=== PATIENT | female | born 1985 | race Caucasian/White ===

== ENCOUNTER 2018-06-10 13:41 | Emergency (ER) | END 2018-06-10 17:58 | disposition home or self-care (01) ==

== ENCOUNTER 2018-07-24 17:40 | Emergency (ER) | payer OTHER ==
[~2018-07-24] VITALS: Wt 58.6 kg
[~2018-07-24 17:40] MED LIST: ACET500C5 PO; METO10TA92 PO
[2018-07-24] MEDS ORDERED: SOD CHLORIDE 0.9% 2,000 ML IV STA (19:07)
[2018-07-24] MEDS ORDERED: METOCLOPRAMIDE 10 MG INJ IV ONE (19:30)
[2018-07-24] MEDS ORDERED: METO10TA92 PO (20:02)
[2018-07-24] MEDS ORDERED: POTASSIUM CHLORIDE (SR) 20 MEQ TAB PO STA (20:05)
--- NOTE | 2018-07-24 20:05 | ERD ---
ER Documentation Chief Complaint Chief Complaint NAUSEA, VOMITING, SENT PER PMD FOR EVAL, 16 WKS PG, NO VB HPI 32-year-old female presents with vomiting since early . She is approximately 16 weeks by dates. She denies any bleeding. She has intermittent crampy abdominal pain. She denies any dysuria, fevers. Vomit is nonbilious nonbloody. She is a G1 para 0. She was referred by primary doctor for evaluation for IV fluids. ROS All systems reviewed and are negative except as per history of present illness. Medications Home Meds Active Scripts Metoclopramide* (Reglan*) 10 Mg Tablet, 10 MG PO Q6 PRN for NAUSEA AND/OR VOMITING, #20 TAB Prov:JERMAIN LOCKHART MD 07/24/18 Metoclopramide* (Reglan*) 10 Mg Tablet, 10 MG PO Q6 PRN for NAUSEA AND/OR VOMITING, #10 TAB Prov:AIDEE HOWARD PA-C 06/10/18 Acetaminophen* (Tylophen*) 500 Mg Capsule, 1 CAP PO Q6H PRN for PAIN AND OR ELEVATED TEMP, #20 CAP Prov:AIDEE HOWARD PA-C 06/10/18 Allergies Allergies: Coded Allergies: No Known Allergy (Unverified , 06/10/18) PMhx/Soc Medical and Surgical Hx: pt denies Medical Hx History of Surgery: Yes (Appendectomy) Anesthesia Reaction: No Hx Alcohol Use: No Hx Substance Use: No Hx Tobacco Use: No Smoking Status: Never smoker FmHx Family History: No diabetes, No coronary disease, No other Physical Exam Vitals Vital Signs Date Temp Pulse Resp B/P (MAP) Pulse Ox O2 O2 Flow FiO2 Time Delivery Rate 07/24/18 98.0 79 16 110/55 100 17:42 (73) Physical Exam Const: No acute distress Head: Atraumatic Eyes: Normal Conjunctiva ENT: Normal External Ears, Nose and Mouth. Neck: Full range of motion. No meningismus. Resp: Clear to auscultation bilaterally Cardio: Regular rate and rhythm, no murmurs Abd: Soft, non tender, non distended. Normal bowel sounds Skin: No petechiae or rashes Back: No midline or flank tenderness Ext: No cyanosis, or edema Neur: Awake and alert Psych: Normal Mood and Affect Result Diagram: 07/24/18191907/24/181919 Results 24 hrs Laboratory Tests Test 07/24/18 19:20 07/24/18 19:21 White Blood Count 8.9 10^3/ul Red Blood Count 3.64 10^6/ul Hemoglobin 11.1 g/dl Hematocrit 32.8 % Mean Corpuscular Volume 90.1 fl Mean Corpuscular Hemoglobin 30.5 pg Mean Corpuscular Hemoglobin Concent 33.8 g/dl Red Cell Distribution Width 12.9 % Platelet Count 231 10^3/UL Mean Platelet Volume 11.0 fl Immature Granulocytes % 0.400 % Neutrophils % 66.6 % Lymphocytes % 21.8 % Monocytes % 6.8 % Eosinophils % 4.1 % Basophils % 0.3 % Nucleated Red Blood Cells % 0.0 /100WBC Immature Granulocytes # 0.040 10^3/ul Neutrophils # 5.9 10^3/ul Lymphocytes # 2.0 10^3/ul Monocytes # 0.6 10^3/ul Eosinophils # 0.4 10^3/ul Basophils # 0.0 10^3/ul Nucleated Red Blood Cells # 0.0 10^3/ul Sodium Level 141 mmol/L Potassium Level 3.2 mmol/L Chloride Level 101 mmol/L Carbon Dioxide Level 28 mmol/L Anion Gap 12 Blood Urea Nitrogen 7 mg/dl Creatinine 0.46 mg/dl Est Glomerular Filtrat Rate mL/min > 60 mL/min Glucose Level 127 mg/dl Calcium Level 9.4 mg/dl Total Bilirubin 0.5 mg/dl Direct Bilirubin 0.00 mg/dl Indirect Bilirubin 0.5 mg/dl Aspartate Amino Transf (AST/SGOT) 21 IU/L Alanine Aminotransferase (ALT/SGPT) 26 IU/L Alkaline Phosphatase 36 IU/L Total Protein 7.0 g/dl Albumin 4.1 g/dl Globulin 2.90 g/dl Albumin/Globulin Ratio 1.41 Lipase 67 U/L Urine Color YELLOW Urine Clarity SLIGHTLY CLOUDY Urine pH 6.0 Urine Specific [place] 1.025 Urine Ketones TRACE mg/dL Urine Nitrite NEGATIVE mg/dL Urine Bilirubin NEGATIVE mg/dL Urine Urobilinogen NEGATIVE mg/dL Urine Leukocyte Esterase NEGATIVE [place]/ul Urine Microscopic RBC 0 /HPF Urine Microscopic WBC 2 /HPF Urine Squamous Epithelial Cells MODERATE /HPF Urine Amorphous Crystals FEW /HPF Urine Bacteria FEW /HPF Urine Mucus MODERATE /HPF Urine Hemoglobin NEGATIVE mg/dL Urine Glucose 3+ mg/dL Urine Total Protein 1+ mg/dl Current Medications Medications Dose Sig/Juana Start Time Status Last (Trade) Ordered Route PRN Stop Time Admin Dose Reason Admin Sodium 2,000 ml @ Q2H STAT 07/24/18 07/24/18 Chloride 1,000 mls/hr IV 19:07 07/24/18 19:31 21:06 10 mg ONCE ONCE 07/24/18 DC 07/24/18 Metoclopramid IV 19:30 07/24/18 19:33 e HCl 19:31 (Reglan) Procedures/MDM CBC shows minimal anemia. Potassium is 3.2. Urine shows no significant acute abnormal findings. Patient was given 2 L normal saline IV IV, Reglan 10 mg IV. Patient had no vomiting during ER course. She had a benign abdomen on serial exam. Pelvic ultrasound shows second trimester intrauterine without appreciable acute abnormalities. Patient was given K-Dur 40 mg by mouth. She presents with signs and symptoms of hyperemesis without evidence of significant dehydration, signs of complication of , additional emergent causes of presenting complaints. Will Reglan, recommendations for frequent small meals, fluids, primary care follow-up and return precautions for pain, bleeding, new or worsening symptoms. The patient was stable with no new complaints during the ER course. Clinically, there is no current evidence to suggest meningitis, sepsis, acute abdomen, pneumonia, stroke, acute coronary syndrome, pulmonary embolism, aortic dissection or any other emergent condition appearing to require further evaluation or hospitalization. Patient counseled regarding my diagnostic impression and care plan. Prior to discharge all questions answered. Pt agrees with treatment plan and understands strict return precautions. Pt is instructed to follow up with primary care provider within 24-48 hours. Precautionary instructions provided including instructions to return to the ER if not improving or for any worsening or changing symptoms or concerns. Departure Diagnosis: Primary Impression: Nausea and vomiting Vomiting type: unspecified Vomiting Intractability: unspecified Qualified Codes: R11.2 - Nausea with vomiting, unspecified Condition: Stable Patient Instructions: Hyperemesis Gravidarum (Severe Morning Sickness) Referrals: DOCTOR,NOT ON STAFF (PCP) Additional Instructions: MAR Y ORINA NORMAL. Cheque otro vez con [place] doctor primario en el proximo dinh or regresa para mas o nueva simptomas. JERMAIN LOCKHART MD Jul 24, 2018 20:05
[2018-07-24 22:13] VITALS: BP 103/53; PULSE 67; RESP 18
== END 2018-07-24 22:14 | disposition home or self-care (01) ==
LOC: FTE 17:40
DX: O21.9 Vomiting of pregnancy, unspecified (principal); Z3A.16 16 weeks gestation of pregnancy
CPT/HCPCS: 36415; 76805; 80053; 81001; 83690; 85025; 96374; 99285; J2765; J7030

== ENCOUNTER 2019-01-09 06:00 | Inpatient (IN) | payer OTHER ==
[~2019-01-09] VITALS: Ht 157.5 cm; Wt 72.0 kg
[2019-01-09] MEDS ORDERED: CARBOPROST 250 MCG INJ IM PRN ×2 (07:30→08:30)
[2019-01-09] MEDS ORDERED: OXYTOCIN 30 UNITS/LR 500 ML IV PRN ×2 (07:30→08:30)
[2019-01-09] MEDS ORDERED: MISOPROSTOL 200 MCG TAB PR PRN ×2 (07:30→08:30)
[2019-01-09] MEDS ORDERED: METHYLERGONOVINE 0.2 MG INJ IM PRN ×2 (07:30→08:30)
[2019-01-09] MEDS ORDERED: OXYTOCIN 30 UNITS/LR 500 ML IV SCH ×4 (07:30→10:30)
[2019-01-09 08:16] VITALS: BP 109/65; PULSE 70; RESP 18
[2019-01-09 08:19] VITALS: Ht 157.5 cm; Wt 72.0 kg
[2019-01-09] MEDS ORDERED: LIDOCAINE 1% (MPF) 30 ML INJ INJ PRN (08:30)
[2019-01-09] MEDS ORDERED: IBUPROFEN 600 MG TAB PO PRN (08:30)
[2019-01-09] MEDS ORDERED: BUTORPHANOL 2 MG INJ IV PRN (08:30)
[2019-01-09] MEDS ORDERED: OXYCODONE/ASPIRIN (4.88/325) TAB PO PRN (08:30)
[2019-01-09] MEDS: LACTATED RINGER'S 1,000 ML IV SCH ×3 (08:41→22:21)
[2019-01-09] MEDS ORDERED: MISOPROSTOL 50 MCG CAPSULE PO SCH (10:45)
[2019-01-09] MEDS: LACTATED RINGER'S 1,000 ML IV PRN ×2 (17:01→17:57)
[2019-01-09] MEDS ORDERED: FENTAnyl 2MCG/ML-ROPIV 0.2% 100 ML ONE (17:48)
[2019-01-09] MEDS: OXYTOCIN 30 UNITS/LR 500 ML IV SCH (17:58)
--- NOTE | 2019-01-09 17:58 | PREAC ---
Date/Time of Note Date/Time of Note DATE: 01/09/19 TIME: 17:57 Anesthesia Eval and Record Evaluation Time Pre-Procedure Interview DATE: 01/09/19 TIME: 17:57 Age 33 Sex female NPO: 8 hrs Preoperative diagnosis Labor Pain Planned procedure Labor Epidural Past Medical History Past Medical History: Includes : : (1), Para: (0), Gestational age: (40) Surgery & Anesthesia Issues No known issue Meds Anticoagulation: No Beta Conchita within 24 hr: No Reason Beta Conchita not given: Pt. not on B-Conchita Active Scripts Metoclopramide* (Reglan*) 10 Mg Tablet, 10 MG PO Q6 PRN for NAUSEA AND/OR VOMITING, #20 TAB Prov:JERMAIN LOCKHART MD 07/24/18 Metoclopramide* (Reglan*) 10 Mg Tablet, 10 MG PO Q6 PRN for NAUSEA AND/OR VOMITING, #10 TAB Prov:AIDEE HOWARD PA-C 06/10/18 Acetaminophen* (Tylophen*) 500 Mg Capsule, 1 CAP PO Q6H PRN for PAIN AND OR ELEVATED TEMP, #20 CAP Prov:AIDEE HOWARD PA-C 06/10/18 Current Medications Lactated Ringer's 1,000 ml @ 125 mls/hr Q8H IV Last administered on 01/09/19at 12:49; Admin Dose 125 MLS/HR; Start 01/09/19 at 07:30 Butorphanol Tartrate (Stadol) 2 mg Q2H PRN IV .PAIN SCALE 6-10; Start 01/09/19 at 08:30 Lidocaine (Xylocaine 1% (Mpf)) 30 ml ONCE PRN INJ .EPISIOTOMY; Start 01/09/19 at 08:30 Oxytocin/Lactated Ringer's 500 ml @ 500 mls/hr ONCE POST IV ; Start 01/09/19 at 08:30 Oxytocin/Lactated Ringer's 500 ml @ 125 mls/hr POST IV ; Start 01/09/19 at 08:30 Ibuprofen (Motrin) 600 mg ONCE PRN PO .PAIN 1-5; Start 01/09/19 at 08:30 Oxycodone/Aspirin (Percodan) 2 tab ONCE PRN PO .PAIN 6-10; Start 01/09/19 at 08:30 Lactated Ringer's 1,000 ml @ 2,000 mls/hr Q30M PRN IV .ANESTHESIA Last administered on 01/09/19at 17:01; Admin Dose 2,000 MLS/HR; Start 01/09/19 at 08:07 Oxytocin/Lactated Ringer's 500 ml @ 0 mls/hr ONCE PRN IV .VAGINAL BLEEDING; Start 01/09/19 at 08:30 Methylergonovine Maleate (Methergine) 0.2 mg ONCE PRN IM .VAGINAL BLEEDING; Start 01/09/19 at 08:30 Carboprost Tromethamine (Hemabate) 250 mcg ONCE PRN IM .VAGINAL BLEEDING; Start 01/09/19 at 08:30 Misoprostol (Cytotec) 1,000 mcg ONCE PRN IN .VAGINAL BLEEDING; Start 01/09/19 at 08:30 Oxytocin/Lactated Ringer's 500 ml @ 0 mls/hr Q0M IV ; Start 01/09/19 at 17:00 Meds reviewed: Yes Allergies Coded Allergies: No Known Allergy (Unverified , 06/10/18) Allergies Reviewed: Yes Labs/Studies Labs Reviewed: Reviewed by anesthesiologist Result Diagram: 01/09/19 0830 Laboratory Tests 01/09/19 08:30 Blood Bank Test 01/09/19 08:30 Antibody Screen NEGATIVE Blood Type O POSITIVE Rh Immune Globulin Candidate NO test: Positive Studies: ECG (n/a), CXR (n/a) Pre-procedure Exam Last vitals Vital Signs Date Temp Pulse Resp B/P (MAP) Pulse Ox O2 O2 Flow FiO2 Time Delivery Rate 01/09/19 97.8 70 18 109/65 08:16 (80) Airway: Adequate mouth opening, Adequate thyromental dist Mallampati: Mallampati II Teeth: Normal Lung: Normal Heart: Normal ASA Physical Status ASA physical status: 2 Emergency: None Planned Anesthetic Neuraxial: Epidural Planned Pain Management Epidural Pre-operative Attestations Prior to commencing anesthesia and surgery, the patient was re-evaluated, there was verification of: *The patient's identity *The results of appropriate recent lab work and preoperative vital signs *The above evaluation not changing prior to induction *Anesthetic plan, risk benefits, alternative and complications discussed with patient/family; questions answered; patient/family understands, accepts and wishes to proceed. TITI APONTE MD 26, 2019 17:58
[2019-01-09] MEDS ORDERED: NALOXONE (0.4 MG/ML) INJ IV PRN (18:00)
[2019-01-09] MEDS: FENTAnyl 2MCG/ML-ROPIV 0.2% 100 ML BAG EPI SCH (18:35)
--- NOTE | 2019-01-09 19:37 | PAC ---
Date/Time of Note Date/Time of Note DATE: 01/09/19 TIME: 19:36 Post-Anesthesia Notes Post-Anesthesia Note Last documented vital signs Vital Signs Date Temp Pulse Resp B/P (MAP) Pulse Ox O2 O2 Flow FiO2 Time Delivery Rate 01/09/19 97.8 70 18 109/65 100 19:16 (80) Activity: WNL Respiratory function: WNL Cardiovascular function: WNL Mental status: Baseline Pain reasonably controlled: Yes Hydration appropriate: Yes Nausea/Vomiting absent: Yes TITI APONTE MD Jan 09, 2019 19:37
--- NOTE | 2019-01-09 20:25 | PREOPHP ---
DATE OF ADMISSION: 01/09/2019 HISTORY OF PRESENT ILLNESS: This is a 33-year-old lady, 1, EDC 01/09/2019 at 40 weeks , admitted to labor and delivery area for induction. She had care in my [place] office and the care was uneventful. PAST PERSONAL HISTORY: No history of diabetes, TB or asthma. ALLERGIES: NO ALLERGIES. SOCIAL HISTORY: The patient does not smoke. She does not drink. MEDICATIONS: She does not take any drugs except her iron and vitamins. GYNECOLOGIC HISTORY: She had menarche at the age of 12, every 28 days interval, 3 to 4 days duration, and moderate in amount. FAMILY HISTORY: Father has diabetes. REVIEW OF SYSTEMS: CARDIOVASCULAR: No chest pains. RESPIRATORY: No cough. GASTROINTESTINAL: No diarrhea, no vomiting. GENITOURINARY: No dysuria. PHYSICAL EXAMINATION: GENERAL: Reveals a conscious, coherent lady and in no acute distress. VITAL SIGNS: Her blood pressure 120/80, pulse rate 80 per minute, respirations 16 per minute. BREASTS: Within normal limits. HEART: Within normal limits. LUNGS: Within normal limits. UTERUS: Fundic height 37 cm. heart tones 140 per minute. PELVIC: Exam at 10:35 a.m. done by me revealed the cervix to be station -2 in cephalic presentation with the bag of water intact. EXTREMITIES: No pedal edema. ADMITTING DIAGNOSIS: A 40 weeks intrauterine . The plans of delivery were explained to the patient as to go for vaginal delivery. The risks, benefits, and alternatives to vaginal delivery at were explained. The risks of were explained as well. She had an OB ultrasound and the estimated weight is about 7 pounds 5 ounces. The patient wanted to go for and her wanted to go for a vaginal delivery. The patient was planned to have Cytotec. The patient so far, at this time of dictation, received 1 dose of Cytotec. She was having some contractions and at times, she was having tachysystole and she was evaluated by the nurse and she was 1 cm so the Cytotec was ordered not to be given anymore and to be given Pitocin augmentation. Dictated By: BEST MENDEZ/NTS Conf#: [id number] DID#: [id number] MTDD
[2019-01-10] MEDS: FENTAnyl 2MCG/ML-ROPIV 0.2% 100 ML BAG EPI SCH ×3 (00:52→14:57)
[2019-01-10] MEDS: LACTATED RINGER'S 1,000 ML IV SCH ×3 (06:03→23:30)
[2019-01-10] MEDS: OXYTOCIN 30 UNITS/LR 500 ML IV SCH (13:00)
[2019-01-10] MEDS ORDERED: ONDANSETRON 4 MG INJ IV PRN ×3 (18:30→21:30)
[2019-01-10] MEDS ORDERED: CEFAZOLIN 2 GM/50 ML (PMX) 50 ML IVPB SCH (20:30)
--- NOTE | 2019-01-10 20:30 | PREAC ---
Date/Time of Note Date/Time of Note DATE: 01/10/19 TIME: 20:29 Anesthesia Eval and Record Evaluation Time Pre-Procedure Interview DATE: 01/10/19 TIME: 20:29 Age 33 Sex female NPO: 8 hrs Preoperative diagnosis failure to progress Planned procedure c section Past Medical History Past Medical History: Includes : Gestational age: Surgery & Anesthesia Issues No known issue (40.1) Meds Anticoagulation: No Beta Conchita within 24 hr: No Reason Beta Conchita not given: Pt. not on B-Conchita Active Scripts Metoclopramide* (Reglan*) 10 Mg Tablet, 10 MG PO Q6 PRN for NAUSEA AND/OR VOMITING, #20 TAB Prov:JERMAIN LOCKHART MD 07/24/18 Metoclopramide* (Reglan*) 10 Mg Tablet, 10 MG PO Q6 PRN for NAUSEA AND/OR V OMITING, #10 TAB Prov:AIDEE HOWARD PA-C 06/10/18 Acetaminophen* (Tylophen*) 500 Mg Capsule, 1 CAP PO Q6H PRN for PAIN AND OR ELEVATED TEMP, #20 CAP Prov:AIDEE HOWARD PA-C 06/10/18 Current Medications Lactated Ringer's 1,000 ml @ 125 mls/hr Q8H IV Last administered on 01/10/19at 14:29; Admin Dose 125 MLS/HR; Start 01/09/19 at 07:30 Butorphanol Tartrate (Stadol) 2 mg Q2H PRN IV .PAIN SCALE 6-10; Start 01/09/19 at 08:30 Lidocaine (Xylocaine 1% (Mpf)) 30 ml ONCE PRN INJ .EPISIOTOMY; Start 01/09/19 at 08:30 Oxytocin/Lactated Ringer's 500 ml @ 500 mls/hr ONCE POST IV ; Start 01/09/19 at 08:30 Oxytocin/Lactated Ringer's 500 ml @ 125 mls/hr POST IV ; Start 01/09/19 at 08:30 Ibuprofen (Motrin) 600 mg ONCE PRN PO .PAIN 1-5; Start 01/09/19 at 08:30 Oxycodone/Aspirin (Percodan) 2 tab ONCE PRN PO .PAIN 6-10; Start 01/09/19 at 08:30 Lactated Ringer's 1,000 ml @ 2,000 mls/hr Q30M PRN IV .ANESTHESIA Last administered on 01/09/19at 17:57; Admin Dose 2,000 MLS/HR; Start 01/09/19 at 08:07 Oxytocin/Lactated Ringer's 500 ml @ 0 mls/hr ONCE PRN IV .VAGINAL BLEEDING; Start 01/09/19 at 08:30 Methylergonovine Maleate (Methergine) 0.2 mg ONCE PRN IM .VAGINAL BLEEDING; Start 01/09/19 at 08:30 Carboprost Tromethamine (Hemabate) 250 mcg ONCE PRN IM .VAGINAL BLEEDING; Start 01/09/19 at 08:30 Misoprostol (Cytotec) 1,000 mcg ONCE PRN CO .VAGINAL BLEEDING; Start 01/09/19 at 08:30 Oxytocin/Lactated Ringer's 500 ml @ 0 mls/hr Q0M IV Last administered on 01/10/19at 13:00; Admin Dose 2 MLS/HR; Start 01/09/19 at 17:00 Naloxone HCl (Narcan) 0.2 mg Q2M PRN IV .RESP RATE; Start 01/09/19 at 18:00 Fentanyl/ Ropivacaine 100 ml EPIDURAL (PCEA) EPI Last administered on 01/10/19at 14:57; Admin Dose 100 ML; Start 01/09/19 at 18:00 Ondansetron HCl (Zofran Inj) 4 mg Q6H PRN IV NAUSEA AND/OR VOMITING Last administered on 01/10/19at 18:38; Admin Dose 4 MG; Start 01/10/19 at 18:30 Cefazolin Sodium/ Dextrose 50 ml @ 100 mls/hr ONCE IVPB ; Start 01/10/19 at 20:30 Meds reviewed: Yes Allergies Coded Allergies: No Known Allergy (Unverified , 06/10/18) Allergies Reviewed: Yes Labs/Studies Labs Reviewed: Reviewed by anesthesiologist Result Diagram: 01/09/19829 test: Positive Studies: ECG (n/a), CXR (n/a) Pre-procedure Exam Last vitals Vital Signs Date Temp Pulse Resp B/P (MAP) Pulse Ox O2 O2 Flow FiO2 Time Delivery Rate 01/09/19 97.8 70 18 109/65 08:16 (80) Airway: Adequate mouth opening Mallampati: Mallampati I Teeth: Normal Lung: Normal Heart: Normal ASA Physical Status ASA physical status: 2 Emergency: None Planned Anesthetic Neuraxial: Epidural Planned Pain Management Parenteral pain med Pre-operative Attestations Prior to commencing anesthesia and surgery, the patient was re-evaluated, there was verification of: *The patient's identity *The results of appropriate recent lab work and preoperative vital signs *The above evaluation not changing prior to induction *Anesthetic plan, risk benefits, alternative and complications discussed with patient/family; questions answered; patient/family understands, accepts and wishes to proceed. ANDIE SHIN MD Jan 10, 2019 20:30
[2019-01-10] MEDS ORDERED: KETOROLAC 30 MG INJ ONE (20:33)
[2019-01-10] MEDS ORDERED: ONDANSETRON 4 MG INJ ONE (20:33)
[2019-01-10] MEDS ORDERED: METOCLOPRAMIDE 10 MG INJ ONE (20:33)
[2019-01-10] MEDS ORDERED: morphine SULFATE/PF (10 MG/10 ML) INJ ONE (20:33)
[2019-01-10] MEDS ORDERED: LIDOCAINE 1.5%/EPI MPF (SDV) 30 ML VIAL ONE (20:33)
[2019-01-10] MEDS ORDERED: METHYLERGONOVINE 0.2 MG INJ ONE (20:50)
[2019-01-10] MEDS ORDERED: FENTAnyl 50 MCG/ML VIAL ONE (20:54)
[2019-01-10] MEDS ORDERED: OXYTOCIN 30 UNITS/LR 500 ML IV ONE (21:22)
[2019-01-10] MEDS ORDERED: morphine 2 MG INJ IV PRN ×6 (21:30)
[2019-01-10] MEDS ORDERED: DIPHENHYDRAMINE 50 MG INJ IV PRN ×2 (21:30)
[2019-01-10] MEDS ORDERED: NALOXONE (0.4 MG/ML) INJ IV PRN (21:30)
--- NOTE | 2019-01-10 21:47 | HP ---
DATE OF ADMISSION: 01/09/2019 ADDENDUM HISTORY OF PRESENT ILLNESS: See dictated history and physical. ADMITTING DIAGNOSIS: A 40 weeks intrauterine in early labor. PROGRESS OF LABOR: This patient received Cytotec x1, and then with a Cytotec, she was having some ta chysystole, and because of that, she was only given 1 dose of Cytotec and then she was started on Pit ocin and then the Pitocin was started at 1740 p.m. on 01/09/2019 and then she was having moderate con tractions, and around 8:30 in the morning, she had artificial ruptured bag of water and she was 3 cm dilated and done by Dr. Scott and she was on Pitocin from 7:34 p.m. on January 09, and and restarted at 12:46 p.m. She had, as mentioned, artificial rupture of membranes, by Dr. Scott at 8:40 a.m. o n January 10. She was continued on Pitocin augmentation at 7:40 p.m. on January 10. I reevaluated the patient. She is having good contractions since is still 3 cm dilated and 100% effaced and station s till -2, and because of failure to progress, the patient and the was informed that she should go for for suspected macrosomia as well as failure to progress. The procedures were expla ined to the patient and to her and both understood everything totally. The risks, benefits, and alternatives were discussed with them as well. Dictated By: BEST MENDEZ/YONATAN Conf#: [id number] DID#: [id number]
[2019-01-10] MEDS ORDERED: OXYTOCIN 30 UNITS/LR 500 ML IV SCH (21:49)
[2019-01-10] MEDS ORDERED: LACTATED RINGER'S 1,000 ML IV SCH (21:49)
--- NOTE | 2019-01-10 21:49 | OPPN ---
Date/Time of Note Date/Time of Note DATE: 01/10/19 TIME: 21:45 Operative Report Planned Procedure Procedure date Jan 10, 2019 Procedure(s) PRIMARY CSECTION Performed by see signature line Transport Medic: LUIS ENRIQUE DAVIS MD 2nd Transport Medic none Pre-procedure diagnosis 40 1/7 IUP FAILURE TO PROGRESS [id number] Anesthesia Type: [id number] epidural Post-Procedure Post-procedure diagnosis 40 1/7 IUP FAILURE TO PROGRESS Findings Live Baby GIRL, Apgars 9and 9, weight 6LBS 10OZ Estimated Blood Loss: 600 - 700 mls Specimen(s) none Grafts/Implant(s) PLACENTA Complication(s) none BEST BROWN MD Jan 10, 2019 21:49
[2019-01-10] MEDS ORDERED: OXYTOCIN 30 UNITS/LR 500 ML IV PRN (22:00)
[2019-01-10] MEDS ORDERED: METHYLERGONOVINE 0.2 MG TAB PO PRN (22:00)
[2019-01-10] MEDS ORDERED: METHYLERGONOVINE 0.2 MG INJ IM PRN (22:00)
[2019-01-10] MEDS ORDERED: LANOLIN HPA 1 PKT TOP PRN (22:00)
[2019-01-10] MEDS ORDERED: MISOPROSTOL 200 MCG TAB PR PRN (22:00)
[2019-01-10] MEDS ORDERED: CARBOPROST 250 MCG INJ IM PRN (22:00)
[2019-01-11] VITALS (7 sets, daily range): BP systolic 97–130; BP diastolic 55–72; PULSE 77–90; RESP 18–19
[2019-01-11] MEDS: SENNA/DOCUSATE NA (8.6MG/50MG) TAB PO SCH ×2 (08:50→21:21)
--- NOTE | 2019-01-11 09:36 | PAC ---
Date/Time of Note Date/Time of Note DATE: 01/11/19 TIME: 09:36 Post-Anesthesia Notes Post-Anesthesia Note Last documented vital signs Vital Signs Date Temp Pulse Resp B/P (MAP) Pulse Ox O2 O2 Flow FiO2 Time Delivery Rate 01/11/19 98.8 83 18 113/57 97 Room Air 04:30 (75) Activity: WNL Respiratory function: WNL Cardiovascular function: WNL Mental status: Baseline Pain reasonably controlled: Yes Hydration appropriate: Yes Nausea/Vomiting absent: No ANDIE SHIN MD Jan 11, 2019 09:36
--- NOTE | 2019-01-11 09:37 | OPPN ---
Date/Time of Note Date/Time of Note DATE: 01/11/19 TIME: 09:36 Anesthesia Follow up Anesthesia Follow up Last documented vital signs Vital Signs Date Temp Pulse Resp B/P (MAP) Pulse Ox O2 O2 Flow FiO2 Time Delivery Rate 01/11/19 98.8 83 18 113/57 97 Room Air 04:30 (75) Respiratory function: WNL Cardiovascular function: WNL Comments A 33 year s/p duramorph for post op Pain POD#1 is fine . no pain, itching, n/v, headache. ANDIE SHIN MD Jan 11, 2019 09:37
[2019-01-11] MEDS: LACTATED RINGER'S 1,000 ML IV SCH (11:21)
[2019-01-11] MEDS: KETOROLAC 30 MG INJ IV PRN ×2 (12:15→20:12)
--- NOTE | 2019-01-11 15:07 | PN ---
Date/Time of Note Date/Time of Note DATE: 01/11/19 TIME: 15:06 Assessment/Plan VTE Prophylaxis Risk score (from Ns)>0 risk: 3 SCD applied (from Ns): Yes Pharmacological prophylaxis: NA/contraindicated Pharm contraindication: low risk/ambulating Lines/Catheters IV Catheter Type (from Nrs): Peripheral IV Assessment/Plan Assessment/Plan POSTCSECTION DAY 1 ORDERED ADVANCE DIET TOLERATED CBC ON 3RD POSTOP DAY Result Diagram: 01/11/19 0755 01/11/19 0755 Results 24hrs Laboratory Tests Test 01/11/19 07:55 White Blood Count 16.0 #H Red Blood Count 3.67 L Hemoglobin 10.7 L Hematocrit 32.6 L Mean Corpuscular Volume 88.8 Mean Corpuscular Hemoglobin 29.2 Mean Corpuscular Hemoglobin Concent 32.8 Red Cell Distribution Width 17.1 H Platelet Count 163 Mean Platelet Volume 11.9 H Immature Granulocytes % 0.500 H Neutrophils % 80.0 H Lymphocytes % 7.2 L Monocytes % 11.4 H Eosinophils % 0.7 Basophils % 0.2 Nucleated Red Blood Cells % 0.0 Immature Granulocytes # 0.080 H Neutrophils # 12.8 H Lymphocytes # 1.2 Monocytes # 1.8 H Eosinophils # 0.1 Basophils # 0.0 Nucleated Red Blood Cells # 0.0 Sodium Level 137 Potassium Level 3.7 Chloride Level 109 Carbon Dioxide Level 21 Anion Gap 7 Blood Urea Nitrogen 7 Creatinine 0.54 Est Glomerular Filtrat Rate mL/min > 60 Glucose Level 73 Calcium Level 8.6 Subjective 24 Hr Interval Summary Free Text/Dictation POST CSECTION DAY 1 COMPLAIN OF INCISIONAL PAINS GOOD URINE OUTPUT PASSING GAS PER RECTUM NO BOWEL MOVEMENT YET Exam/Review of Systems Exam Vitals Vital Signs Date Temp Pulse Resp B/P (MAP) Pulse Ox O2 O2 Flow FiO2 Time Delivery Rate 01/11/19 98.2 84 18 106/55 98 Room Air 08:00 (72) Intake and Output 01/10/19 01/10/19 01/11/19 1515:00 23:00 07:00 IntakeIntake Total 1042 ml 816 ml 400 ml OutputOutput Total 1200 ml 1100 ml 2429 ml BalanceBalance -158 ml -284 ml -2029 ml Exam VITAL SIGNS STABLE: YES AFEBRILE: YES BREAST NOT ENGORGED, NON-TENDER, NO APPRECIABLE MASS: YES LUNGS CLEAR, NO RALES, WHEEZES, RHONCHI: YES SINUS RHYTHM WITHOUT MURMUR: YES ABDOMEN: NON-TENDER FUNDUS: BELOW UMBILICUS BOWEL SOUNDS: PRESENT UTERUS: FIRM INCISION (CLEAN, DRY, AND INTACT): YES LOCHIA: LIGHT DEEP TENDON REFLEXES: 0 EXTREMITIES: NO CALF TENDERNESS EDEMA SCALE: NONE Results Results 24hrs Laboratory Tests Test 01/11/19 07:55 White Blood Count 16.0 #H Red Blood Count 3.67 L Hemoglobin 10.7 L Hematocrit 32.6 L Mean Corpuscular Volume 88.8 Mean Corpuscular Hemoglobin 29.2 Mean Corpuscular Hemoglobin Concent 32.8 Red Cell Distribution Width 17.1 H Platelet Count 163 Mean Platelet Volume 11.9 H Immature Granulocytes % 0.500 H Neutrophils % 80.0 H Lymphocytes % 7.2 L Monocytes % 11.4 H Eosinophils % 0.7 Basophils % 0.2 Nucleated Red Blood Cells % 0.0 Immature Granulocytes # 0.080 H Neutrophils # 12.8 H Lymphocytes # 1.2 Monocytes # 1.8 H Eosinophils # 0.1 Basophils # 0.0 Nucleated Red Blood Cells # 0.0 Sodium Level 137 Potassium Level 3.7 Chloride Level 109 Carbon Dioxide Level 21 Anion Gap 7 Blood Urea Nitrogen 7 Creatinine 0.54 Est Glomerular Filtrat Rate mL/min > 60 Glucose Level 73 Calcium Level 8.6 Medications Medication Current Medications Lactated Ringer's 1,000 ml @ 125 mls/hr Q8H IV Last administered on 01/11/19at 11:21; Admin Dose 125 MLS/HR; Start 01/09/19 at 07:30 Butorphanol Tartrate (Stadol) 2 mg Q2H PRN IV .PAIN SCALE 6-10; Start 01/09/19 at 08:30 Lidocaine (Xylocaine 1% (Mpf)) 30 ml ONCE PRN INJ .EPISIOTOMY; Start 01/09/19 at 08:30 Oxytocin/Lactated Ringer's 500 ml @ 500 mls/hr ONCE POST IV ; Start 01/09/19 at 08:30 Oxytocin/Lactated Ringer's 500 ml @ 125 mls/hr POST IV Last administered on 01/10/19at 21:54; Admin Dose 125 MLS/HR; Start 01/09/19 at 08:30 Ibuprofen (Motrin) 600 mg ONCE PRN PO .PAIN 1-5; Start 01/09/19 at 08:30 Oxycodone/Aspirin (Percodan) 2 tab ONCE PRN PO .PAIN 6-10; Start 01/09/19 at 08:30 Oxytocin/Lactated Ringer's 500 ml @ 0 mls/hr ONCE PRN IV .VAGINAL BLEEDING; Start 01/09/19 at 08:30 Methylergonovine Maleate (Methergine) 0.2 mg ONCE PRN IM .VAGINAL BLEEDING; Start 01/09/19 at 08:30 Carboprost Tromethamine (Hemabate) 250 mcg ONCE PRN IM .VAGINAL BLEEDING; Start 01/09/19 at 08:30 Misoprostol (Cytotec) 1,000 mcg ONCE PRN NV .VAGINAL BLEEDING; Start 01/09/19 at 08:30 Oxytocin/Lactated Ringer's 500 ml @ 0 mls/hr Q0M IV Last administered on 01/10/19at 13:00; Admin Dose 2 MLS/HR; Start 01/09/19 at 17:00 Naloxone HCl (Narcan) 0.2 mg Q2M PRN IV .RESP RATE; Start 01/09/19 at 18:00 Fentanyl/ Ropivacaine 100 ml EPIDURAL (PCEA) EPI Last administered on 01/10/19at 14:57; Admin Dose 100 ML; Start 01/09/19 at 18:00 Ondansetron HCl (Zofran Inj) 4 mg Q6H PRN IV NAUSEA AND/OR VOMITING Last administered on 01/10/19at 18:38; Admin Dose 4 MG; Start 01/10/19 at 18:30 Cefazolin Sodium/ Dextrose 50 ml @ 100 mls/hr ONCE IVPB ; Start 01/10/19 at 20:30 Naloxone HCl (Narcan) 0.1 mg Q2M PRN IV .RESP RATE; Start 01/10/19 at 21:30; Stop 01/11/19 at 21:29 Ketorolac Tromethamine (Toradol) 30 mg Q6H PRN IV PAIN AFTER CSECTION Last administered on 01/11/19at 12:15; Admin Dose 30 MG; Start 01/10/19 at 21:30; Stop 01/11/19 at 21:29 Morphine Sulfate (morphine) 3 mg Q4 PRN IV .BREAKTHROUGH PAIN; Start 01/10/19 at 21:30; Stop 01/11/19 at 21:29 Morphine Sulfate (morphine) 2 mg Q3H PRN IV .PAIN 1-5; Start 01/10/19 at 21:30; Stop 01/11/19 at 21:29 Morphine Sulfate (morphine) 4 mg Q3H PRN IV .PAIN 6-10; Start 01/10/19 at 21:30; Stop 01/11/19 at 21:29 Diphenhydramine HCl (Benadryl) 25 mg Q6H PRN IV .ITCHING; Start 01/10/19 at 21:30; Stop 01/11/19 at 21:29 Ondansetron HCl (Zofran Inj) 4 mg Q6H PRN IV .NAUSEA/VOMITING; Start 01/10/19 at 21:30; Stop 01/11/19 at 21:29 Methylergonovine Maleate (Methergine) 0.2 mg Q6H PRN PO .VAGINAL BLEEDING; Start 01/10/19 at 22:00 Simethicone (Mylicon) 160 mg Q8H PRN PO .GAS; Start 01/10/19 at 22:00 Senna/Docusate Sodium (Senokot-S) 1 tab BID PO Last administered on 01/11/19at 08:50; Admin Dose 1 TAB; Start 01/11/19 at 09:00 Lanolin (Lanolin Hpa) 1 applic BEDSIDE MEDICATION PRN TOP .NIPPLES Last administered on 01/11/19at 08:50; Admin Dose 1 APPLIC; Start 01/10/19 at 22:00 Diphtheria/ Tetanus/Acell Pertussis (Adacel) 0.5 ml ONCE ONCE IM* ; Start 01/13/19 at 09:00; Stop 01/13/19 at 09:01 Measles/Mumps/ Rubella Vaccine Live (Mmr Ii Vaccine) 0.5 ml ONCE ONCE SC* ; Start 01/13/19 at 09:00; Stop 01/13/19 at 09:01 Oxytocin/Lactated Ringer's 500 ml @ 0 mls/hr ONCE PRN IV .VAGINAL BLEEDING; Start 01/10/19 at 22:00 Methylergonovine Maleate (Methergine) 0.2 mg ONCE PRN IM .VAGINAL BLEEDING; Start 01/10/19 at 22:00 Carboprost Tromethamine (Hemabate) 250 mcg ONCE PRN IM .VAGINAL BLEEDING; Start 01/10/19 at 22:00 Misoprostol (Cytotec) 1,000 mcg ONCE PRN NV .VAGINAL BLEEDING; Start 01/10/19 at 22:00 Ibuprofen (Motrin) 800 mg Q6H PRN PO MILD PAIN LEVEL 1-3; Start 01/11/19 at 21:30 Acetaminophen/ Hydrocodone Bitart ([place] (5/325)) 1 tab Q4H PRN PO MODERATE PAIN LEVEL 4-6; Start 01/11/19 at 21:30 Acetaminophen/ Hydrocodone Bitart ([place] (5/325)) 2 tab Q4H PRN PO SEVERE PAIN LEVEL 7-10; Start 01/11/19 at 21:30 BEST BROWN MD Jan 11, 2019 15:07
[2019-01-11] MEDS: HYDROCODONE/APAP (5/325) TAB PO PRN (23:50)
[2019-01-12 04:10] VITALS: BP 97/51; PULSE 70; RESP 18
[2019-01-12] MEDS: HYDROCODONE/APAP (5/325) TAB PO PRN ×2 (05:48→09:25)
--- NOTE | 2019-01-12 07:46 | OPR ---
DATE OF OPERATION: 01/10/2019 PREOPERATIVE DIAGNOSES: 1. 40 and 1/7 weeks intrauterine in labor. 2. Failure to progress. 3. Suspected macrosomia. POSTOPERATIVE DIAGNOSES: 1. 40 and 1/7 weeks intrauterine in labor. 2. Failure to progress. 3. Suspected macrosomia. OPERATION PERFORMED: Primary low transverse section. SURGEON: Best Brown MD IN SHOP SERVICE TECHNICIAN: Luis Enrique Dorman MD ANESTHESIA: Epidural. ANESTHESIOLOGIST: Dr. Marc. PROCEDURE: Primary low transverse section. OPERATIVE TECHNIQUE: Under epidural anesthesia, the patient was prepped and draped in the usual [facility] ion for abdominal surgery. After checking for the effect of the anesthesia, a Pfannenstiel incision, 10 cm skin incision was performed. The incision was carried from the skin up to the fascia. Upon o pening the skin up to the fascia, small blood vessels were noted to be oozing and these were all caut erized. Fascia was opened transversely followed by splitting the muscles vertically and the peritone um vertically. Upon opening the abdominal cavity, the bladder blade was put in place. A small chelsey was performed from the serosa up to the endometrium and the lower uterine segment and the chelsey was ca rried sideways with the aid of my 2 fingers. My left hand was inserted on the lower segment of the u terus and the baby's head was delivered. 2+ caput was noted. Baby's airways were quickly suctioned with amniotic fluid. There was 1 loop of tight cord around the baby's neck that needs to be released prior to the delivery of the rest of the body of the baby. Baby's cord was clamped after 30 seconds . The baby was handed to the nursery nurse and to the bicycle service technician. The placenta was delivered manually and complete. The uterus was exteriorized. The uterus was cleansed with wet lap sponge to make sure that no membranes were left behind. After correct sponge count, the uterus was close d in the usual fashion using #1 chromic for the first layer, continuous locking suture was used follo wed by #1 chromic for the second layer, imbricating sutures were used. Bleeders were checked, and th ere was no bleeding noted. After checking for any bleeders in which there were none, both tubes and ovaries were inspected. They were healthy looking. The back of the uterus was checked for any hemat kati and there were none noted. Then, once again the uterus was checked. The uterus was hypotonic an d Methergine was given, and the uterus contracted. The uterus was put back to the pelvic cavity. On ce again, uterine incision was checked for any bleeders and there was no bleeding noted. After corre ct sponge count, needle count and instrument count as confirmed by the technical services coordinator and dealmaker, the abdomen was closed in the usual fashion using 0 Vicryl for the peritoneum, 0 Vicryl for the muscles, for the fascia 0 Vicryl continuous stitch was used followed by few [id number] suture for the bullock bcutaneous tissue, it was closed with 3-0 Vicryl and the skin was closed with 3-0 Vicryl, subcuticula r suture was used. The patient tolerated the procedure well. Estimated blood loss about 700 mL. Vi chon signs were stable during and after the procedure. She delivered a healthy baby girl, 9 and 9 on 01/10/2019 weighing 6 pounds 11 ounces, 3030 grams, 19 inches long. Dictated By: BEST BROWN MD NS/NTS Conf#: [id number] DID#: [id number] CC: LUIS ENRIQUE DORMAN MD;*EndCC*
[2019-01-12 08:30] VITALS: BP 100/52; PULSE 71; RESP 18
[2019-01-12] MEDS: SENNA/DOCUSATE NA (8.6MG/50MG) TAB PO SCH ×3 (08:59→20:59)
[2019-01-12] MEDS ORDERED: BISACODYL (EC) 5 MG TAB PO ONE (15:00)
[2019-01-12] MEDS ORDERED: MAGNESIUM HYDROXIDE 30ML CUP PO ONE (15:00)
[2019-01-12 15:30] VITALS: BP 118/70; PULSE 70; RESP 18
[2019-01-12] MEDS ORDERED: BISACODYL 10 MG SUPP PR ONE (15:30)
[2019-01-12] MEDS: IBUPROFEN 800 MG TAB PO PRN ×2 (17:51→22:45)
[2019-01-12] MEDS ORDERED: BISACODYL (EC) 5 MG TAB PO PRN (20:00)
[2019-01-12] MEDS ORDERED: MAGNESIUM HYDROXIDE 30ML CUP PO PRN (20:00)
[2019-01-12 20:15] VITALS: BP 110/52; PULSE 69; RESP 18
[2019-01-13] MEDS: IBUPROFEN 800 MG TAB PO PRN (03:58)
[2019-01-13 04:00] VITALS: BP 119/58; PULSE 79; RESP 18
[2019-01-13] MEDS: HYDROCODONE/APAP (5/325) TAB PO PRN ×2 (04:57→11:06)
--- NOTE | 2019-01-13 06:21 | PN ---
Date/Time of Note Date/Time of Note DATE: 01/12/19 TIME: 03:00PM Assessment/Plan VTE Prophylaxis Risk score (from Nsg)>0 risk: 1 SCD applied (from Nsg): No SCD contraindicated: low risk/ambulating Pharmacological prophylaxis: NA/contraindicated Pharm contraindication: low risk/ambulating Lines/Catheters IV Catheter Type (from Nrsg): Peripheral IV Assessment/Plan Assessment/Plan POST CSECTION DAY 2 HOME TOMORROW CBC TOMORROW COUNSELED INSTRUCTED PRESCRIPTION GIVEN FOR PAIN RETURN TO CLINIC IN 2 WEEKS CALL OFFICE IF THERE IS ANY PROBLEM OR CONCERN CONTINUE WITH VITAMINS OD AND FERROUS SULFATE 325MG PO TID DIET ADVISED Result Diagram: 01/11/19 0755 01/11/19 0755 Subjective 24 Hr Interval Summary Free Text/Dictation POST CSECTION DAY 2 LITTLE BOWEL MOVEMENT GOOD URINE OUTPUT FEELS LESS INCISIONAL PAINS Exam/Review of Systems Exam Vitals Vital Signs Date Temp Pulse Resp B/P (MAP) Pulse Ox O2 O2 Flow FiO2 Time Delivery Rate 01/13/19 98.1 79 18 119/58 Room Air 04:00 (78) 01/11/19 95 20:00 Exam VITAL SIGNS STABLE: YES AFEBRILE: YES BREAST NOT ENGORGED, NON-TENDER, NO APPRECIABLE MASS: YES LUNGS CLEAR, NO RALES, WHEEZES, RHONCHI: YES SINUS RHYTHM WITHOUT MURMUR: YES ABDOMEN: NON-TENDER FUNDUS: BELOW UMBILICUS BOWEL SOUNDS: PRESENT UTERUS: FIRM INCISION (CLEAN, DRY, AND INTACT): YES LOCHIA: LIGHT DEEP TENDON REFLEXES: 0 EXTREMITIES: NO CALF TENDERNESS EDEMA SCALE: NONE Medications Medication Current Medications Butorphanol Tartrate (Stadol) 2 mg Q2H PRN IV .PAIN SCALE 6-10; Start 01/09/19 at 08:30 Oxytocin/Lactated Ringer's 500 ml @ 500 mls/hr ONCE POST IV ; Start 01/09/19 at 08:30 Oxytocin/Lactated Ringer's 500 ml @ 125 mls/hr POST IV Last administered on 01/10/19at 21:54; Admin Dose 125 MLS/HR; Start 01/09/19 at 08:30 Oxycodone/Aspirin (Percodan) 2 tab ONCE PRN PO .PAIN 6-10; Start 01/09/19 at 08:30 Oxytocin/Lactated Ringer's 500 ml @ 0 mls/hr ONCE PRN IV .VAGINAL BLEEDING; Start 01/09/19 at 08:30 Methylergonovine Maleate (Methergine) 0.2 mg ONCE PRN IM .VAGINAL BLEEDING; Start 01/09/19 at 08:30 Carboprost Tromethamine (Hemabate) 250 mcg ONCE PRN IM .VAGINAL BLEEDING; Start 01/09/19 at 08:30 Misoprostol (Cytotec) 1,000 mcg ONCE PRN SC .VAGINAL BLEEDING; Start 01/09/19 at 08:30 Oxytocin/Lactated Ringer's 500 ml @ 0 mls/hr Q0M IV Last administered on 01/10/19at 13:00; Admin Dose 2 MLS/HR; Start 01/09/19 at 17:00 Naloxone HCl (Narcan) 0.2 mg Q2M PRN IV .RESP RATE; Start 01/09/19 at 18:00 Fentanyl/ Ropivacaine 100 ml EPIDURAL (PCEA) EPI Last administered on 01/10/19at 14:57; Admin Dose 100 ML; Start 01/09/19 at 18:00 Ondansetron HCl (Zofran Inj) 4 mg Q6H PRN IV NAUSEA AND/OR VOMITING Last adm inistered on 01/10/19at 18:38; Admin Dose 4 MG; Start 01/10/19 at 18:30 Cefazolin Sodium/ Dextrose 50 ml @ 100 mls/hr ONCE IVPB ; Start 01/10/19 at 20:30 Methylergonovine Maleate (Methergine) 0.2 mg Q6H PRN PO .VAGINAL BLEEDING; Start 01/10/19 at 22:00 Simethicone (Mylicon) 160 mg Q8H PRN PO .GAS; Start 01/10/19 at 22:00 Senna/Docusate Sodium (Senokot-S) 1 tab BID PO Last administered on 01/12/19at 20:59; Admin Dose 1 TAB; Start 01/11/19 at 09:00 Lanolin (Lanolin Hpa) 1 applic BEDSIDE MEDICATION PRN TOP .NIPPLES Last administered on 01/11/19at 08:50; Admin Dose 1 APPLIC; Start 01/10/19 at 22:00 Diphtheria/ Tetanus/Acell Pertussis (Adacel) 0.5 ml ONCE ONCE IM* ; Start 01/13/19 at 09:00; Stop 01/13/19 at 09:01 Measles/Mumps/ Rubella Vaccine Live (Mmr Ii Vaccine) 0.5 ml ONCE ONCE SC* ; Sta rt 01/13/19 at 09:00; Stop 01/13/19 at 09:01 Oxytocin/Lactated Ringer's 500 ml @ 0 mls/hr ONCE PRN IV .VAGINAL BLEEDING; Start 01/10/19 at 22:00 Methylergonovine Maleate (Methergine) 0.2 mg ONCE PRN IM .VAGINAL BLEEDING; Start 01/10/19 at 22:00 Carboprost Tromethamine (Hemabate) 250 mcg ONCE PRN IM .VAGINAL BLEEDING; Start 01/10/19 at 22:00 Misoprostol (Cytotec) 1,000 mcg ONCE PRN SC .VAGINAL BLEEDING; Start 01/10/19 at 22:00 Ibuprofen (Motrin) 800 mg Q6H PRN PO MILD PAIN LEVEL 1-3 Last administered on 01/13/19at 03:58; Admin Dose 800 MG; Start 01/11/19 at 21:30 Acetaminophen/ Hydrocodone Bitart ([place] (5/325)) 1 tab Q4H PRN PO MODERATE PAIN LEVEL 4-6 Last administered on 01/13/19at 04:57; Admin Dose 1 TAB; Start 01/11/19 at 21:30 Acetaminophen/ Hydrocodone Bitart ([place] (5/325)) 2 tab Q4H PRN PO SEVERE PAIN LEVEL 7-10 Last administered on 01/12/19at 09:25; Admin Dose 2 TAB; Start 9 at 21:30 BEST BROWN MD Jan 13, 2019 06:21
[2019-01-13 08:00] VITALS: BP 105/52; PULSE 64; RESP 18
[2019-01-13] MEDS ORDERED: MEASLES,MUMPS,RUBELLA VACCINE INJ SC* ONE (09:00)
[2019-01-13] MEDS ORDERED: DIPHTH/TET/ACEL PERTUSS (ADULT) 0.5 ML VIAL IM* ONE (09:00)
--- NOTE | 2019-01-14 16:20 | DELSUM ---
Delivery Summary A-C Datetime Report Generated by CPN: 01/14/2019 16:19 DELIVERY PERSONNEL Stranding Machine Operator Helper: ROGER, NANCIE MATERNAL INFORMATION Delivery Anesthesia: Epidural Medications in Delivery: SEE ANESTHESIA RECORD Delivery QBL (ml): 700 Placenta Cultured: No Maternal Complications: Other LABOR SUMMARY EDC: 01/09/2019 00:00 No. Babies in Womb: 1 Attempted: No Labor Anesthesia: Epidural LABOR INFORMATION Reason for Induction: Postterm Onset of Labor: 01/10/2019 04:57 Cervical Ripening Agents: Cytotec @ 50 Group B Beta Strep: Negative Antibiotics # of Doses: 1 Antibiotics Time of Last Dose: 01/10/2019 20:38 Steroids Given: None Reason Steroids Not Administered: Not Applicable MEMBRANES Membranes Rupture Method: Artificial Rupture of Membranes: 01/10/2019 08:34 Length of Rupture (hr): 12.27 Amniotic Fluid Color: Clear Amniotic Fluid Amount: Moderate Amniotic Fluid Odor: None STAGES OF LABOR Stage 3 hr: 0 Stage 3 min: 1 Total Time in Labor hr: 15 Total Time in Labor min: 54 CSECTION DELIVERY Primary Indication: Failure of Descent Secondary Indication: Failed Induction CSection Urgency: Elective Labor: Labor CSection Incision: Lower Uterine Transverse BABY A INFORMATION Infant Delivery Date/Time: 01/10/2019 20:50 Method of Delivery: Born in Route : No : N/A Forceps: N/A Vacuum Extraction: N/A Shoulder Dystocia : N/A SHOULDER DYSTOCIA BABY A Infant Delivery Date/Time: 01/10/2019 20:50 PRESENTATION/POSITION BABY A Presentation: Cephalic Cephalic Presentation: Vertex Breech Presentation: N/A PLACENTA INFORMATION BABY A Placenta Delivery Time : 01/10/2019 20:51 Placenta Method of Delivery: Manual Removal Placenta Status: Delivered SCORES BABY A Heart Rate 1 min: >100 bpm Resp Effort 1 min: Good Cry Reflex Irritability 1 min: Cough/Sneeze/Pulls Away Muscle Tone 1 min: Active Motion Color 1 min: Body [place], Extremit Blue Resuscitation Effort 1 min: Tactile Stimulation SCORE 1 MIN: 9 Heart Rate 5 min: >100 bpm Resp Effort 5 min: Good Cry Reflex Irritability 5 min: Cough/Sneeze/Pulls Away Muscle Tone 5 min: Active Motion Color 5 min: Body [place], Extremit Blue Resuscitation Effort 5 min: Tactile Stimulation SCORE 5 MIN: 9 INFANT INFORMATION BABY A Gestational Age at Delivery: 40.1 Gestational Status: Full Term- 39- 40.6 Weeks Outcome : Liveborn, with signs of life Infant Condition : Stable Infant Sex: Female IDENTIFICATION/MEDS BABY A ID Band Number: [id number] ID Band Location: Right Leg; Left Arm Sensor Applied: Yes Sensor Number: [id number] Sensor Location : Cord Clamp Vitamin K Given : Not Given Erythromycin Given: Not Given WEIGHT/LENGTH BABY A Infant Birthweight (gm): 3030 Infant Weight (lb): 6 Weight (oz): 11 Infant Length (in): 19.00 Length (cm): 48.26 CORD INFORMATION BABY A No. Cord Vessels: 3 Nuchal Cord : Around Neck x1, Loose Cord Blood Taken: Yes Suction: Mouth; Nose ASSESSMENT BABY A Infant Complications: None Physical Findings at Delivery: Within Normal Limits Infant Respirations: Appears Normal Metal Mixer/ALS Called : Yes Infant Care By: RT/RN Transferred To: Remains with Mother
== END 2019-01-13 14:26 | disposition home or self-care (01) | DRG 788 ==
LOC: L-D 06:57 → PP1 01-10 23:56
PROVIDERS: ADMIT Obstetrics & Gynecology; ATTEND Obstetrics & Gynecology
PROC: 10D00Z1 Extraction of Products of Conception, Low, Open Approach (ICD-10-PCS; principal; 2019-01-10)
DX: O48.0 Post-term pregnancy (principal); O62.0 Primary inadequate contractions; O36.63X0 Maternal care for excessive fetal growth, third trimester, not applicable or unspecified; Z37.0 Single live birth; Z3A.40 40 weeks gestation of pregnancy
CPT/HCPCS: 62322; 76816; 80048; 81001; 81003; 85025; 85610; 85730; 86592; 86850; 86900; 86901; 87340; 99464; J0690; J1885; J2210; J2274; J2405; J2590; J2765; J3010; J7120